=== PATIENT | male | born 1960 | race Caucasian/White ===

== ENCOUNTER 2017-02-07 07:08 | Day surgery (SDC) | payer OTHER ==
[2017-02-06 08:55] VITALS: BMI 27.0
[~2017-02-07] VITALS: Ht 182.9 cm; Wt 90.0 kg
[~2017-02-07 07:08] MED LIST: ASPI-589 PO; CEFAZOLIN 2000 MG/60 ML D5W IV SCH; CLOP1TAB15 PO; LACTATED RINGER'S 1000ML 1,000 ML IV SCH; MULT-1027 PO; OMEG10007 PO; SIMV40TA2 PO; TAMS0.4C38 PO
[2017-02-07] MEDS ORDERED: OXYC-57 PO (07:33)
[2017-02-07 07:35] VITALS: BP 157/82; PULSE 76; TEMP 37.2; O2SAT 99; Ht 182.9 cm; Wt 90.0 kg
[2017-02-07 07:36] LABS: HEMATOCRIT 40.8 % (42-52); MEAN CELL VOLUME 81.8 fL (80-100); MEAN CORPUSCULAR HEMOGLOBIN 30.1 pg (25-34); MEAN PLATELET VOLUME 9.6 fL (7.4-10.4); PLATELET COUNT 161 K/uL (130-400); RED BLOOD COUNT 4.99 M/uL (4.7-6.1); WHITE BLOOD COUNT 3.94 K/uL (4.8-10.8)
[2017-02-07 07:42] LABS: MEAN CORPUSCULAR HGB CONC 36.8 g/dl (32-36)
[2017-02-07] MEDS ORDERED: LIDOCAINE HCL 2% 2 ML VIAL (20MG/ML) ONE (07:56)
[2017-02-07] MEDS ORDERED: ONDANSETRON INJ 2 MG/ML 2 ML VIAL ONE (07:56)
[2017-02-07] MEDS ORDERED: DEXAMETHASONE SOD INJ 4 MG/ML VIAL ONE (07:56)
[2017-02-07] MEDS ORDERED: MIDAZOLAM HCL 1 MG/ML 2ML VIAL ONE (07:56)
[2017-02-07] MEDS ORDERED: PROPOFOL IV EMULSION 10 MG/ML 20 ML VIAL IV ONE (07:56)
[2017-02-07] MEDS ORDERED: FENTANYL CITRATE INJ 50 MCG/1 ML 2 ML VIAL ONE (07:56)
[2017-02-07] MEDS ORDERED: EpHEDrine SULFATE INJ 50 MG/ML AMP IV PRN (08:15)
[2017-02-07] MEDS ORDERED: FENTANYL CITRATE INJ 50 MCG/1 ML 2 ML VIAL IV PRN (08:15)
[2017-02-07] MEDS ORDERED: ATROPINE SULFATE 0.1 MG/ML 5ML SYR IV PRN (08:15)
[2017-02-07] MEDS ORDERED: ONDANSETRON INJ 2 MG/ML 2 ML VIAL IV PRN (08:15)
--- NOTE | 2017-02-07 09:34 | History & Physical Bridge Note ---
H&P Re-Evaluation Bridge Note: I have examined the patient, reviewed the History & Physical and in the interval since the performance of the History & Physical I have noted the following changes of clinical significance: No changes noted
[2017-02-07] MEDS ORDERED: EpHEDrine SULFATE 50MG/5ML SYR ONE (10:04)
[2017-02-07] MEDS ORDERED: BELLADONNA/OPIUM SUPP 60 MG SUPP PR ONE (10:19)
--- NOTE | 2017-02-07 10:28 | [facility] Operative Report ---
Operative Report Operative Date Feb 07, 2017. Pre-Operative Diagnosis Left ureteral stone Post-Operative Diagnosis same Procedure(s) Performed cysto , left ureteroscopy, laser lithotripsy basket stone extraction Surgeon Dr. Becky Paniagua District Manager In Training Surgeon(s) none Estimated Blood Loss 5ml Findings radio-lucent left mid ureteral stone Fluids 1000mL Specimens Specimen: A: Left ureteral stone for analysis Drains none Anesthesia LMA Complication(s) None Disposition Recovery Room / PACU Indications obstructing 7mm left upper ureteral stone with colic. He opts for surgical stone removal Description of Procedure Patient was given general LMA anesthesia and placed in lithotomy position. His genitals were prepped and draped in sterile fashion. Time out held with team. I placed a 21 fr rigid cystoscope to bladder. The urethra is unremarkable. The prostate is small. The UOs are in normal location and the left one is weakly effluxing bloody urine. I placed a stiff wire up left ureter and it passed easily. There is no stone seen on fluoro as the wire passed. There was brisk efflux after placement of wire so a stone has been dislodged. I used a dual lumen cath to calibrate the UO and placed a second wire. I placed a flex ureteroscope over the second wire to the distal ureter. Under vision I advanced the scope to mid ureter where I encountered the stone at the level of the iliacs. I used a 200 micrn holmium laser to fragment the stone justin a dozen pieces. It fragmented very easily. It is a pale gutierrez crystalline shape. I used a 2.2 fr zero tip basket to remove a few pieces. Most siply rinsed out. The case was shrt and the lasering atraumatic so I elected not to leave a stent. I replaced the cystoscope and rinsed the stone fragments out of the bladder. I left bladder empty and concluded case. I placed a belladonna and opium suppository for post-op pain. He transferred to recovery under my escort, in stable condition. Plan: Home today Pyridium for dysuria x 3 days flomax daily oral pain meds as needed stone analysis discussion in 2 weeks ASA 2 clean contaminated case 25 seconds fluoro ancef antibiotic senior application programmer I attest to the content of the Intraoperative Record and any orders documented therein. Any exceptions are noted below.
--- NOTE | 2017-02-07 10:31 | Discharge Instructions ---
Discharge Instructions Date of Service Feb 07, 2017. Admission Reason for Admission: Kidney Stones Discharge Discharge Diagnosis / Problem: left ureteral stone Discharge Goals Goal(s): Decrease discomfort, Improve function, Improve disease control Activity Recommendations Activity Limitations: resume your previous activity Lifting Limitations: none Exercise/Sports Limitations: none May Resume Sexual Activity: when tolerated Shower/Bathe: no limitations Driving or Machine Use: resume 1 day after discharge . Instructions / Follow-Up Instructions / Follow-Up urine will be very bloody for several days. drink extra fluids so long as urine is bloody if you form large clots in urine and cannot void for more than 3-4 hours, come to office or ER for irrigation of clot take flomax daily until pain free Discharge Diet Recommended Diet: Regular Diet Fluid Restriction: None Procedures Procedures Performed: Cystoscopy, Left Ureteroscopy, Laser Lithotripsy;Basket Stone Extraction Pending Studies Studies pending at discharge: yes List of pending studies: stone analysis Medical Emergencies . Who to Call and When: Medical Emergencies: If at any time you feel your situation is an emergency, please call 911 immediately. . Non-Emergent Contact Non-Emergency issues call your: Urologist ([phone]) Call Non-Emergent contact if: temperature is above 100.5, your pain is not controlled . . "Provider Documentation" section prepared by Becky Paniagua. VTE Core Measure Inpt VTE Proph given/why not?: SCD's [place] Drug Monitoring Program Search Results: patient reviewed within database, no issues identified
--- NOTE | 2017-02-07 10:49 | DIAGNOSTIC IMAGING REPORT ---
Stent placement KUB CLINICAL HISTORY: LT STENT PLACEMENT stent placement. Calcification. TECHNIQUE: Image intensifier COMPARISON STUDY: None FINDINGS: Image intensifier images show retrograde cannulation of the left ureter for purposes of calcification extraction. There are utilized intraoperatively. IMPRESSION: Intraoperative image intensifier for left ureteral operative change. Electronically signed by: Joseph Gonzalez M.D. 02/07/2017 10:47 AM Dictated Date/Time: 02/07/2017 10:46 AM
--- NOTE | 2017-02-07 11:01 | Anesthesiology Progress Note ---
Anesthesia Post Op Note Date & Time Feb 07, 2017 at 11:01 Vital Signs Pain Intensity: 2 Vital Signs Past 12 Hours Date Time Temp Pulse Resp B/P Pulse Ox O2 Delivery O2 Flow Rate FiO2 02/07/17 10:42 58 20 100 02/07/17 10:42 57 20 02/07/17 10:40 132/72 02/07/17 10:37 70 21 02/07/17 10:37 71 21 100 02/07/17 10:35 132/75 02/07/17 10:32 73 15 02/07/17 10:32 36.2 75 16 137/75 100 Mask 10 02/07/17 10:32 73 15 137/75 100 02/07/17 07:35 37.2 76 16 157/82 99 Room Air Notes Mental Status: alert / awake / arousable, participated in evaluation Pt Amnestic to Procedure: Yes Nausea / Vomiting: adequately controlled Pain: adequately controlled Airway Patency, RR, SpO2: stable & adequate BP & HR: stable & adequate Hydration State: stable & adequate Anesthetic Complications: no major complications apparent
[2017-02-07 11:20] VITALS: BP 137/64; PULSE 63; TEMP 36.4; O2SAT 99
[2017-02-07] MEDS ORDERED: OXYCODONE/ACETAMINOPHEN 5-325 TAB ONE (11:42)
[2017-02-07] MEDS ORDERED: NURSING VERBAL MED ORDER ONE (11:45)
[2017-02-07 11:50] VITALS: BP 141/76; PULSE 54; O2SAT 99
[2017-02-07] MEDS ORDERED: OXYCODONE/ACETAMINOPHEN 5-325 TAB PO ONE (12:00)
[2017-02-07 12:21] VITALS: BP 133/64; PULSE 53; O2SAT 100
== END 2017-02-07 12:52 | disposition home or self-care (01) ==
LOC: C.ACU 07:08
PROVIDERS: ATTEND Urology
DX: N20.1 Calculus of ureter (principal)